=== PATIENT | male | born 1960 | race Caucasian/White ===

== ENCOUNTER → 2020-12-14 07:38 | Outpatient (CLI) | payer OTHER, SELFPAY ==
--- NOTE | ~2020-12-14 | XR_ITS ---
EXAMINATION: XR chest 2V DATE: 12/14/2020 08:30 INDICATION: Epigastric pain TECHNIQUE: Frontal and lateral views of the chest are obtained COMPARISON: None available FINDINGS: The lungs are free of acute opacities. There is no pleural effusion or pneumothorax. The ca rdiomediastinal silhouette is normal. There is moderate thoracic spondylosis. IMPRESSION: 1. No acute cardiopulmonary abnormality. Reviewed, dictated and finalized at location A. NT APPLICATION SUPPORT SPECIALIST
--- NOTE | ~2020-12-14 | XR_ITS ---
EXAMINATION: XR abdomen/kub 1V INDICATION: Epigastric abdominal pain TECHNIQUE: Supine views of the abdomen were obtained on 2 radiographs. COMPARISON: None FINDINGS: The bowel gas pattern is normal. No free intraperitoneal gas is identified. The lung bases are clear. A moderate volume of colonic stool is present. There is mild osteoarthritis of the hips. IMPRESSION: 1. Constipation. Reviewed, dictated and finalized at location A. INE IRONER IMPRESSION: 1. Constipation.
== END ==
PROVIDERS: PCP Family Medicine; Visit Provider Family Medicine
DX: R10.13 Epigastric pain (principal); K59.00 Constipation, unspecified
CPT/HCPCS: 71046; 74018

== ENCOUNTER → 2023-07-14 13:07 | Outpatient (CLI) | payer OTHER, SELFPAY ==
--- NOTE | ~2023-07-14 | XR_ITS ---
XR chest 2V DATE: 07/14/2023 13:42 INDICATION: Chest pain. Hyperglycemia. TECHNIQUE: 2 views COMPARISON: 12/14/2020 2 view chest FINDINGS: Normal heart size. Aortic arch calcification. No hilar or mediastinal enlargement. There is moderate hyperinflation of the lungs. No pulmonary infiltrate or consolidation, pleural effu chung or pulmonary vascular congestion or pneumothorax is detected. There is degenerative spurring of the thoracic spine. IMPRESSION: No active cardiopulmonary disease Aortic atherosclerosis Reviewed, dictated and finalized at location A.
== END ==
DX: R07.9 Chest pain, unspecified (principal); I70.0 Atherosclerosis of aorta; R73.9 Hyperglycemia, unspecified
CPT/HCPCS: 71046

== ENCOUNTER 2023-07-14 13:52 | Outpatient (CLI) | payer MEDICARE, SELFPAY ==
--- NOTE | 2023-07-14 14:16 | ECG_ITS ---
Measurements Intervals [place] Rate: 85 P: 78 NH: 151 QRS: 76 QRSD: 103 T: 60 QT: 348 QTc: 415 Interpretive Statements SINUS RHYTHM NO PREVIOUS ECG AVAILABLE FOR COMPARISON Electronically Signed On 07-14-2023 14:27:33 CDT by Sonja Hong M.D.
== END 2023-07-14 13:53 | disposition home or self-care (01) ==
LOC: ANHCARD 14:05
PROVIDERS: PCP Family Medicine
DX: I49.8 Other specified cardiac arrhythmias (principal); R73.9 Hyperglycemia, unspecified; R73.03 Prediabetes; Z72.0 Tobacco use
CPT/HCPCS: 93005

== ENCOUNTER 2024-02-26 09:38 | Outpatient (CLI) | payer MEDICARE, SELFPAY ==
--- NOTE | ~2024-02-26 | US_ITS ---
EXAMINATION: US thyroid DATE: 02/26/2024 10:04 INDICATION: Thyroid nodule. TECHNIQUE: Multiple ultrasound images of the thyroid were obtained. COMPARISON: None. FINDINGS: The right thyroid lobe measures 5.1 x 2.0 x 1.9 cm. The left thyroid lobe measures 5.3 x 2.9 x 2.3 c m. In the left thyroid lobe, there is a 14 mm solid, isoechoic, wider than tall nodule with ill-defi luis margin without echogenic foci (TI-RADS TR3). In the left thyroid lobe, there is a 2.2 cm solid, i soechoic, taller than wide nodule with ill-defined margin without echogenic foci (TR4). In the left t hyroid lobe, there is a 16 mm solid, isoechoic, wider than tall nodule with ill-defined margin withou t echogenic foci (TR3). IMPRESSION: 1. Multinodular goiter. Ultrasound-guided fine-needle aspiration of the 2.2 cm left thyroid nodule is recommended. Reviewed, dictated and finalized at location A.
== END 2024-02-26 09:39 ==
LOC: MICIMG 09:38
PROVIDERS: PCP Family Medicine; Visit Provider Family Medicine
DX: E04.2 Nontoxic multinodular goiter (principal); E78.5 Hyperlipidemia, unspecified; E11.9 Type 2 diabetes mellitus without complications; R35.1 Nocturia; N40.2 Nodular prostate without lower urinary tract symptoms; R06.02 Shortness of breath; K21.9 Gastro-esophageal reflux disease without esophagitis; Z72.0 Tobacco use
CPT/HCPCS: 76536

== ENCOUNTER 2024-05-05 12:27 | Outpatient (CLI) | payer MEDICARE, SELFPAY ==
--- NOTE | ~2024-05-05 | US_ITS ---
EXAMINATION: US FNA w image guidance DATE: 05/05/2024 13:46 INDICATION: Nontoxic multinodular goiter TECHNIQUE: A time-out was performed to verify the patient's name, date of , and procedure to be performed . The procedure and its benefits and risks were discussed with the patient. Risks specifically discus sed included bleeding and infection. The patient understood the risks and agreed to proceed. The neck was prepped and draped in the usual sterile manner. 3 mL 1% lidocaine was used for local anesthesia . 9 passes were made with a 25G needle into the lesion. Appropriate needle location was documented with continuous sonographic guidance. A sterile bandage was applied. There were no immediate compli cations. FINDINGS: Grayscale ultrasound images demonstrate biopsy needles advanced into a 3.1 cm TI RADS 4 nodule at the deep inferior left thyroid lobe. IMPRESSION: 1. Successful ultrasound-guided fine needle aspiration of a 3.1 cm TI RADS 4 left thyroid mass. Reviewed, dictated and finalized at location A. IMPRESSION: 1. Successful ultrasound-guided fine needle aspiration of a 3.1 cm TI RADS 4 l eft thyroid mass.
== END 2024-05-05 12:28 | disposition home or self-care (01) ==
PROVIDERS: PCP Family Medicine; Visit Provider Otolaryngology
DX: E04.2 Nontoxic multinodular goiter (principal)
CPT/HCPCS: 10005; 88172; 88173; 88305

== ENCOUNTER 2024-10-24 08:44 | Outpatient (CLI) | payer MEDICARE, SELFPAY ==
--- NOTE | ~2024-10-24 | XR_ITS ---
EXAMINATION: XR lumbar spine 2-3V DATE: 10/24/2024 08:58 INDICATION: Low back pain. Right-sided sciatica. TECHNIQUE: 3 views of lumbar spine including standing views were obtained. COMPARISON: None. FINDINGS: There is 4 degrees dextrocurvature of lumbar spine. Vertebral body heights are normal. Ther e is moderately decreased disc height at L5-S1. There is multilevel moderate facet joint osteoarthrit is, worse in lower lumbar spine. IMPRESSION: 1. Moderate lumbar spondylosis. Reviewed, dictated and finalized at location A. CAL INSTRUMENTS ASSEMBLER
== END 2024-10-24 08:45 | disposition home or self-care (01) ==
PROVIDERS: PCP Family Medicine; Visit Provider Nurse Practitioner Family
DX: M47.816 Spondylosis without myelopathy or radiculopathy, lumbar region (principal); M54.31 Sciatica, right side
CPT/HCPCS: 72100

== ENCOUNTER 2025-01-02 11:03 | Outpatient (CLI) | payer MEDICARE, SELFPAY ==
--- NOTE | ~2025-01-02 | US_ITS ---
EXAMINATION: US thyroid DATE: 01/02/2025 11:44 INDICATION: Nontoxic multinodular goiter. TECHNIQUE: Multiple ultrasound images of the thyroid were obtained. COMPARISON: Ultrasound 02/26/2024 FINDINGS: The right thyroid lobe measures 5.7 x 2.3 x 1.8 cm. The left thyroid lobe measures 6.7 x 3.5 x 2.2 c m. In the right thyroid lobe, there is a 4 mm nodule. In the right thyroid lobe, there is a 3 mm nod ule. In the left thyroid lobe, there is a 2.3 cm entirely solid, isoechoic, solid nodule with ill-def ined margin without echogenic foci (TI-RADS TR3). Biopsy on 05/05/24 was nondiagnostic. In the left th yroid lobe, there is a 2.2 cm solid, isoechoic, wider than tall nodule with ill-defined margin withou t echogenic foci (TR3). IMPRESSION: 1. Multinodular goiter. Thyroid ultrasound is recommended in 2 years. Reviewed, dictated and finalized at location A. O TECHNICIAN
== END 2025-01-02 11:04 | disposition home or self-care (01) ==
LOC: MICIMG 11:04
PROVIDERS: PCP Otolaryngology; Visit Provider Otolaryngology
DX: E04.2 Nontoxic multinodular goiter (principal)
CPT/HCPCS: 76536

== ENCOUNTER 2025-04-05 09:13 | Outpatient (CLI) | payer MEDICARE, SELFPAY ==
--- NOTE | ~2025-04-05 | US_ITS ---
Thyroid ultrasound. Clinical History: Thyroid nodule COMPARISON: 01/02/2025 Findings: Real-time sonography of the thyroid gland was performed. The right lobe measures 6.0 x 2.2 x 1.8 cm. The left lobe measures 6.9 x 3.3 x 2.3 cm. The isthmus is 3 mm in AP diameter. Apparent st able 3 mm hypoechoic nodule in the right upper pole. Suggestion of a 2.7 x 2.5 x 2.2 cm isoechoic nod ule at the posterior left thyroid lobe. Impression: Essentially stable 2.7 cm solid nodule at the left thyroid lower pole posteriorly.. Reviewed, dictated and finalized at location M. Impression: Essentially stable 2.7 cm solid nodule at the left thyroid lower pole posterior ly..
--- NOTE | ~2025-04-05 | MR_ITS ---
MRI of the lumbar spine Clinical History: Spondylosis Technique: Axial T2-weighted images, and sagittal T1-weighted, T2-weighted, and and T2 fat-sat images were acquired. Findings: There is no fracture of the lumbar spine. There is 2 mm retrolisthesis of L5 over S1. No pat ne marrow signal abnormality seen. At L1-L2 and L2-L3, there is no disc bulge or herniation. There is mild facet arthropathy. No central canal stenosis or neural foraminal narrowing at these levels. At L3-L4, there is minimal disc desiccation. There is minimal disc bulge and mild facet arthropathy. No central canal stenosis. Neural foramina are preserved. At L4-L5, there is mild disc bulge with mild facet arthropathy. No central canal stenosis or neural f oraminal narrowing. At L5-S1, there is mild disc bulge with superimposed right paracentral disc extrusion. There is proba ble impingement of descending right S1-S2 level nerve root. There is moderate to advanced right neura l foraminal narrowing result. There is mild to moderate left neural foraminal narrowing. Paravertebral soft tissues are unremarkable. Impression: Disc extrusion at L5-S1, probably impinging the descending right S1-S2 level nerve root. Additional b ilateral neural foraminal narrowing at this level. Additional mild degenerative changes in the remainder of the lumbar spine, as above. Reviewed, dictated and finalized at [facility]. Impression: Disc extrusion at L5-S1, probably impinging the descending right S1-S2 level ne rve root. Additional bilateral neural foraminal narrowing at this level. Additional mild degenerative changes in the remainder of the lumbar spine, as a veronica.
== END 2025-04-05 09:14 | disposition home or self-care (01) ==
PROVIDERS: PCP Family Medicine; Visit Provider Family Medicine
DX: M47.816 Spondylosis without myelopathy or radiculopathy, lumbar region (principal); M51.27 Other intervertebral disc displacement, lumbosacral region; M54.31 Sciatica, right side; E04.1 Nontoxic single thyroid nodule
CPT/HCPCS: 72148; 76536